=== PATIENT | female | born 2000 | race Caucasian/White ===

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

== ENCOUNTER → 2019-07-01 | Outpatient (REF) | payer OTHER ==
[~2019-07-01] MED LIST: AUGM500T34 PO; PERI0.126 SSP; TRAM50TA2 PO; ZOFR4TAB16 PO
== END ==
LOC: M SFHCLERA 14:59
PROVIDERS: ATTEND Nurse Practitioner Family
DX: R68.89 Other general symptoms and signs (principal)